=== PATIENT | female | born 1990 | race Caucasian/White ===

== ENCOUNTER 2019-02-28 17:38 | Observation (INO) | payer MEDICAID ==
[~2019-02-28] VITALS: Ht 154.9 cm; Wt 99.8 kg
[2019-02-28] MEDS ORDERED: LACTATED RINGERS 1,000 ML IV SCH (20:15)
[2019-02-28] MEDS ORDERED: MAGNESIUM/ALUMINUM HYDROXIDE/SIMETHICONE 30ML UDC PO ONE (20:15)
[2019-02-28] MEDS ORDERED: TERBUTALINE SULFATE 1MG/ML VIAL SUBCUT PRN (20:15)
[2019-02-28 21:22] LABS: CHLORIDE 107 mEq/L (98-107)
[2019-02-28 21:23] LABS: BASOPHILS % 1.1 % (0.0-2.0); EOSINOPHILS % 0.4 % (0.0-5.0); HEMATOCRIT. 37.7 % (36.0-48.0); HEMOGLOBIN. 12.7 g/dL (12.0-16.0); LYMPHOCYTES % 33.5 % (20.0-50.0); MEAN CORPUSCULAR HEMOGLOBIN 30.3 pg (28.0-32.0); MEAN CORPUSCULAR VOLUME 90.2 fL (81.0-99.0); MEAN PLATELET VOLUME 11.2 fl (7.4-10.4); MONOCYTES % 3.7 % (2.0-8.0); NEUTROPHILS % 61.3 % (40.0-76.0); PLATELET 253 x1000/uL (130-400); RED BLOOD CELL COUNT 4.18 mill/uL (4.2-5.4); RED CELL DISTRIBUTION WIDTH 13.5 % (11.6-14.6)
[2019-02-28 21:28] LABS: CLARITY URINE CLEAR (CLEAR); COLOR URINE YELLOW (YELLOW); KETONES URINE 1+ (NEGATIVE); LEUKOCYTE ESTERASE URINE NEGATIVE (NEGATIVE); NITRITE URINE NEGATIVE (NEGATIVE); OCCULT BLOOD URINE TRACE (NEGATIVE); PH URINE 6.5 (4.5-8.0); PROTEIN URINE 3+ (NEGATIVE); SPECIFIC GRAVITY URINE 1.014 (1.005-1.030); UROBILINOGEN URINE 0.2 E.U./dL (0.2-1.0)
[2019-02-28 21:32] LABS: D-DIMER 2.25 mg/L FEU (<0.50); INR 0.9; PARTIAL THROMBOPLASTIN TIME 25.9 sec (23.4-31.0); PROTHROMBIN TIME 9.2 sec (9.6-11.0)
[2019-02-28] MEDS ORDERED: ACETAMINOPHEN 325MG TABLET PO NR (22:00)
[2019-02-28] MEDS ORDERED: PNV1TABL50 PO (23:06)
[2019-02-28] MEDS ORDERED: CALC-1042 PO (23:06)
[2019-02-28] MEDS ORDERED: FERR-71 PO (23:06)
[2019-02-28] MEDS ORDERED: INSLIS SUBCUT (23:06)
[2019-02-28] MEDS ORDERED: FOLI-43 PO (23:06)
== END 2019-03-01 00:01 | disposition home or self-care (01) ==
LOC: ER 17:38 → 8 EST LDRP 18:50
PROVIDERS: ADMIT Obstetrics & Gynecology; ATTEND Obstetrics & Gynecology
DX: O26.893 Other specified pregnancy related conditions, third trimester (principal); R10.13 Epigastric pain; R10.30 Lower abdominal pain, unspecified; O62.9 Abnormality of forces of labor, unspecified; O24.913 Unspecified diabetes mellitus in pregnancy, third trimester; Z79.4 Long term (current) use of insulin; Z98.891 History of uterine scar from previous surgery; Z3A.36 36 weeks gestation of pregnancy
CPT/HCPCS: 36415; 76805; 76818; 80053; 81003; 84550; 85025; 85379; 85384; 85610; 85730; 96372; 99281; G0378; J3105; 96360; 96361